=== PATIENT | male | born 1995 | race Caucasian/White ===

== ENCOUNTER 2020-08-05 10:56 | Emergency (ER) | payer BC ==
[2020-08-05] MEDS ORDERED: ARZOL Silver Nitrate Applicator TP ONE ×2 (11:47→11:52)
[2020-08-05] MEDS ORDERED: MORPHINE SULFATE 4 MG INJ IM ONE (11:48)
[2020-08-05] MEDS ORDERED: Unasyn 1.5GM Vial IM ONE (11:51)
[2020-08-05] MEDS ORDERED: XYLOCAINE 1% HCL 20 ML MDV IJ ONE (11:51)
[2020-08-05] MEDS ORDERED: Adacel Vial IM ONE ×2 (11:53→12:01)
--- NOTE | 2020-08-05 11:55 | ERPHSYRPT ---
- History of Present Illness Time Seen by Provider: 08/05/20 11:11 Source: patient Exam Limitations: no limitations Patient Subjective Stated Complaint: pt reports approx 30 mins he was using a sharp knife to clean a deer and accidentally cut his index and middle fingers. pt denies other injuries at this time. Triage Nursing Assessment: pt is aox3, ambulatory to treatment room with no diffculty. pt present with bath towel in place over right hand. pt afebrile, pupils perrl, resps easy and non labored, cap refill < 3 seconds, radial pulses strong and equal. upon inspection pt noted to have an approximate 5cm x 1cm flap to the dorsal middle finger, skin is well approximated, pt also has an approimxate 2cm x 2cm avulsion to the right dorsal index finger. tendon is visible, pt sensation and ROM intact at this time. copious bleeding at this time from both wounds, pressure dressing is in place. Physician History: 25 years old left-handed dominant male presented in the ER with chief complaint of laceration right second and third digit while he was cutting deer meat almost 30 minutes prior to arrival. There is a loss of skin junk on the right second digit proximal phalanx with exposed tendon and active bleeding from both lacerations and second and third digit. Complaining of moderate intensity sharp pain which is aggravated with applying pressure and movements. Complaining of numbness in the second and third digits with tingling sensation. Occurred: just prior to arrival Method of Injury: incised Quality: constant, sharpness Severity of Pain-Max: moderate Severity of Pain-Current: mild Extremities Pain Location: 2nd finger: right, 3rd finger: right Modifying Factors: Improves With: immobilization, rest. Worsens With: movement Allergies/Adverse Reactions: No Known Drug Allergies Allergy (Unverified 08/05/20 11:31) Hx Tetanus, Diphtheria Vaccination/Date Given: (unk) Hx Influenza Vaccination/Date Given: No Hx Pneumococcal Vaccination/Date Given: No Immunizations Up to Date: Yes Travel Risk - International Travel Have you traveled outside of the country in past 3 weeks: No - Coronavirus Screening Are you exhibiting any of the following symptoms?: No Close contact with a COVID-19 positive Pt in past 14-21 Days: No - Review of Systems Constitutional: No Symptoms Eyes: No Symptoms Ears, Nose, & Throat: No Symptoms Respiratory: No Symptoms Cardiac: No Symptoms Abdominal/Gastrointestinal: No Symptoms Genitourinary Symptoms: No Symptoms Musculoskeletal: Injury Skin: Skin Lesions Neurological: No Symptoms Psychological: No Symptoms Endocrine: No Symptoms Hematologic/Lymphatic: No Symptoms Immunological/Allergic: No Symptoms - Past Medical History Pertinent Past Medical History: No - Past Surgical History Past Surgical History: No - Social History Smoking Status: Never smoker Drug Use: none Patient Lives Alone: No - Nursing Vital Signs Nursing Vital Signs: Initial Vital Signs Temperature 98.8 F 08/05/20 11:05 Pulse Rate 105 H 08/05/20 11:05 Respiratory Rate 20 08/05/20 11:05 Blood Pressure 154/93 08/05/20 11:05 O2 Sat by Pulse Oximetry 99 08/05/20 11:05 Pain Scale Pain Intensity 2 - Physical Exam General Appearance: no apparent distress, alert Eyes, Ears, Nose, Throat Exam: normal ENT inspection Neck Exam: normal inspection, supple, full range of motion Cardiovascular/Respiratory Exam: normal breath sounds, regular rate/rhythm Wrist Exam: normal inspection, non-tender Hand Exam: laceration (right 3rd digit, L shaped laceration withg limbs of 2.5 and 5 cm , exposed extensor tendon with partial avulsion, mild limitations of movemenst and decreased sensation on the lateral aspect. cap refill <3 sec.), limited ROM (right 2nd digit. loss of skin and soft tissue proximnal phalanx dorsal aspect with loss of some part of extensor tendon, mild limitation of extension agaist resistance . mild decreased sensation s, cap refill in <3 SEC.), soft tissue tenderness, swelling Neuro/Tendon Exam: sensory deficit, tendon function deficit, tendon injury visualized, No normal sensation Mental Status Exam: alert, oriented x 3, cooperative Skin Exam: normal color SpO2 Interpretation: normal SpO2: 99 O2 Delivery: Room Air Procedures - Laceration/Wound Repair Right Lateral Dorsal Finger Wound Location: Right Wound Length (cm): 7.5 Wound's Depth, Shape: into muscle, flap Wound Explored: clean Irrigated: Yes Hibiclens Prep: Yes Anesthesia: 1% Lidocaine Volume Anesthetic (ccs): 5 Wound Repaired With: sutures Suture Size/Type: 4-0 Number of Sutures: 11 Layer Closure?: No Sterile Dressing Applied?: Yes Splint Applied?: Yes Type of Splint Applied: finger aluminum Sling Applied?: No Ordered Tests: Active Orders 24 hr Category Date Time Status Prepare for Sutures STAT Care 08/05/20 12:16 Completed Splint STAT Care 08/05/20 12:31 Completed Sutures STAT Care 08/05/20 12:17 Completed Wound Care STAT Care 08/05/20 12:16 Completed HAND (2 VIEW) Stat Exams 08/05/20 12:29 Taken Medication Summary Discontinued Medications Generic Name Dose Route Start Last Admin Trade Name Freq PRN Reason Stop Dose Admin Ampicillin Sodium/Sulbactam Sodium 1.5 g 08/05/20 11:51 08/05/20 12:20 Unasyn 1.5gm Vial IM 08/05/20 11:52 1.5 g STAT ONE Administration Diphtheria/Tetanus/Acell Pertussis 0.5 ml 08/05/20 11:53 08/05/20 12:21 Adacel Vial IM 08/05/20 11:54 0.5 ml .ONCE ONE Administration Diphtheria/Tetanus/Acell Pertussis Confirm 08/05/20 12:01 Adacel Vial Administered 08/05/20 12:02 Dose 0.5 ml IM .STK-MED ONE Ampicillin Sodium/Sulbactam Sodium Confirm 08/05/20 12:03 Unasyn 1.5gm / Nacl 100ml Administered 08/05/20 12:04 Dose 1.5 gm in 100 mls @ ud .ROUTE .STK-MED ONE Lidocaine HCl 5 ml 08/05/20 11:51 08/05/20 12:41 Xylocaine 1% Hcl 20 Ml Mdv IJ 08/05/20 11:52 5 ml STAT ONE Administration Lidocaine HCl Confirm 08/05/20 12:14 Xylocaine 1% Hcl 20 Ml Mdv Administered 08/05/20 12:15 Dose 1 ml .ROUTE .STK-MED ONE Morphine Sulfate 4 mg 08/05/20 11:48 08/05/20 12:25 Morphine Sulfate 4 Mg Inj IM 08/05/20 11:49 4 mg STAT ONE Administration Morphine Sulfate Confirm 08/05/20 12:01 Morphine Sulfate 4 Mg Inj Administered 08/05/20 12:02 Dose 4 mg .ROUTE .STK-MED ONE Silver Nitrate Confirm 08/05/20 11:47 Arzol Silver Nitrate Applicator Administered 08/05/20 11:48 Dose 3 pkt TP .STK-MED ONE Silver Nitrate 2 pkt 08/05/20 11:52 08/05/20 12:40 Arzol Silver Nitrate Applicator TP 08/05/20 11:53 2 pkt ONCE ONE Administration - Progress Progress: improved, pain not gone completely Progress Note: 08/05/20 12:19 Patient has loss of skin junk/superficial soft tissue and part of extensor tendon on the second digit proximal phalanx but is still able to extend finger but has some weakness against resistance. Decreased sensations of touch. Bleeding points are cauterized with silver nitrate sticks. I have discussed with Dr. Stout hand surgery [facility], he has reviewed pictures of lacerations, recommended Xeroform dressing on the second digit serration on the third digit. Tetanus is updated, antibiotic shot is given and will continue with antibiotics to go home. Patient with see Dr. Bucio tomorrow for reevaluation. Discussed with patient about some extensor function loss which he understand and is okay with it. Discussed with Dr.: Other Counseled pt/family regarding: diagnosis, need for follow-up, rad results - Departure Departure Disposition: Home Clinical Impression: Finger laceration involving tendon Qualifiers: Encounter type: initial encounter Qualified Code(s): S61.219A - Laceration without foreign body of unspecified finger without damage to nail, initial encounter Avulsion of skin of finger with tendon involvement Qualifiers: Encounter type: initial encounter Qualified Code(s): S61.209A - Unspecified open wound of unspecified finger without damage to nail, initial encounter Condition: Stable Critical Care Time: Yes Critical Care Time(excluding separately billable procedures): Critical 30-74 mins Referrals: DOCTOR,NO FAMILY [Primary Care Provider] - ELISABETH STOUT MD [NON-STAFF PHY W/O PRIVILEGES] - (Tomorrow at 1:15 PM at [facility] [place]) Instructions: Laceration Repair With Stitches (DC) Additional Instructions: Keep it elevated. Take pain medications as needed. Continue with antibiotics. Follow-up with hand surgery tomorrow at 1:15 PM at [facility] [place]. Return to ER for excruciating pain/swelling/discoloration of fingertips/fever chills or discharge. Prescriptions: Smz/Tmp Ds Tablet [Bactrim Ds Tablet] 1 udtab PO BID #14 tablet Hydrocodone/Acetaminophen [[place] 7.5-325 Tablet] 1 each PO Q4-6HPRN PRN 3 Days #12 tablet MDD 4 PRN Reason: Pain
[2020-08-05] MEDS ORDERED: MORPHINE SULFATE 4 MG INJ ONE (12:01)
[2020-08-05] MEDS ORDERED: Unasyn 1.5GM / NaCl 100ML 1.5 GM/100 ML IVPB ONE (12:03)
[2020-08-05] MEDS ORDERED: XYLOCAINE 1% HCL 20 ML MDV ONE (12:14)
[2020-08-05 13:00] VITALS: BP 152/90; PULSE 89
[2020-08-05 13:11] VITALS: O2SAT 99
--- NOTE | 2020-08-05 21:05 | XRAY ---
Indication: 1st/2nd digit laceration. Comparison: None 2 view right hand demonstrates soft tissue changes base 2nd finger presumed laceration. No other bony, articular, or soft tissue abnormalities.
== END 2020-08-05 13:01 | disposition home or self-care (01) ==
LOC: ED 10:56
DX: W26.0XXA Contact with knife, initial encounter (principal); Y93.89 Activity, other specified; Y92.89 Other specified places as the place of occurrence of the external cause; S61.310A Laceration without foreign body of right index finger with damage to nail, initial encounter
CPT/HCPCS: 12002; 73120; 90471; 90715; 96372; 99284; 99291; J0295; J2270; A9270-GY